=== PATIENT | female | born 1940 | race Two or more races ===

== ENCOUNTER 2017-10-21 09:01 | Outpatient (CLI) | payer OTHER | END 2017-10-21 11:40 | disposition home or self-care (01) | LOC: SONOGRAMA 09:01 | DX: E04.2 Nontoxic multinodular goiter (principal) ==

== ENCOUNTER 2017-12-29 08:35 | Emergency (ER) | payer OTHER ==
[~2017-12-29] VITALS: Ht 144.8 cm; Wt 53.1 kg
== END 2017-12-29 09:58 | disposition home or self-care (01) ==
LOC: ER 08:35
DX: S51.812A Laceration without foreign body of left forearm, initial encounter (principal); S80.212A Abrasion, left knee, initial encounter; W01.198A Fall on same level from slipping, tripping and stumbling with subsequent striking against other object, initial encounter; Y93.01 Activity, walking, marching and hiking; Y92.488 Other paved roadways as the place of occurrence of the external cause; Y99.8 Other external cause status

== ENCOUNTER 2018-01-25 16:32 | Emergency (ER) | payer OTHER ==
[~2018-01-25] VITALS: Ht 144.8 cm; Wt 52.6 kg
[2018-01-25] MEDS ORDERED: HYZAAR 100-251 EACH (16:53)
[2018-01-25] MEDS ORDERED: NORVASC5 MG (16:54)
[2018-01-25] MEDS ORDERED: PLAVIX75 MG (16:54)
== END 2018-01-25 20:42 | disposition home or self-care (01) ==
LOC: ER 16:32
DX: M54.5 Low back pain (principal)

== ENCOUNTER → 2018-04-03 | Outpatient (CLI) | payer OTHER ==
[~2018-04-03] MED LIST: HYZAAR 100-251 EACH; NORVASC5 MG; PLAVIX75 MG
== END | disposition home or self-care (01) ==
LOC: RAD 501 09:25
DX: J45.998 Other asthma (principal)

== ENCOUNTER 2018-06-25 10:44 | Outpatient (CLI) | payer OTHER | END 2018-06-25 10:48 | disposition home or self-care (01) | LOC: RAD 501 10:44 | DX: M15.0 Primary generalized (osteo)arthritis (principal); M51.27 Other intervertebral disc displacement, lumbosacral region ==

== ENCOUNTER 2019-04-17 09:31 | Emergency (ER) | payer OTHER ==
[~2019-04-17] VITALS: Ht 147.3 cm; Wt 52.6 kg
[2019-04-17] MEDS ORDERED: ATACAND32 MG (09:41)
[2019-04-17] MEDS ORDERED: GRALISE600 MG (09:42)
== END 2019-04-17 18:40 | disposition home or self-care (01) ==
LOC: ER 09:31
DX: K52.9 Noninfective gastroenteritis and colitis, unspecified (principal); E86.0 Dehydration

== ENCOUNTER 2019-04-20 08:35 | Emergency (ER) | payer OTHER ==
[~2019-04-20] VITALS: Ht 147.3 cm; Wt 52.6 kg
[~2019-04-20 08:35] MED LIST changes: +ATACAND32 MG; +GRALISE600 MG
== END 2019-04-20 14:44 | disposition home or self-care (01) ==
LOC: ER 08:35
DX: K52.9 Noninfective gastroenteritis and colitis, unspecified (principal)

== ENCOUNTER 2019-11-21 23:06 | Inpatient (IN) | payer OTHER ==
[~2019-11-21] VITALS: Ht 144.8 cm; Wt 45.4 kg
--- NOTE | 2019-11-22 01:09 | NUR ---
SE RECIBE PTE ALERTA Y ORIENTADA X 3 ESFERAS EN AREA DE AISLAMIENTO. PTE INDICA QUE PRESENTA FIEBRE Y ESCALOFRIOS DE UN ROLF DE EVOLUCION. EVALUA PTE. SE ORIENTA A PTE SOBRE TX MEDICO. PTE REFIERE COMPRENDER. SE COLECTAN MUESTRAS DE LABORATORIO BAJO MEDIDAS ASEPTICAS. SE ADMINISTRA MEDICAMENTO JEFFRY ORDEN MEDICA. SE NOTIFICA HOSSEIN X. SE REALIZA EKG Y SE PRESENTA A .
--- NOTE | 2019-11-22 07:13 | NUR ---
SE RECIBE PTE FEMENINA ALERTA Y ORIENTADA EN [place] ESFERAS ES COMPANIA DE FAMILIAR, EN CAMA BAJA CON BARANDAS ELEVADAS Y FRENOS COLOCADOS POR SEGURIDAD. SE OBSERVA CON BUEN PATRON RESPIRATORIO Y NO REFIERE DOLOR AL MOMENTO. VENOPUNCION PATENTE, LAURA DE EDEMA Y ERITEMA RECIBIENDO TERAPPIA DE IVFS 0.9NSS BAJANDO A 150ML/HR. PENDIENTE REEMPLAZO DE POTASIO EN ESPERA DE DESPACHO.
--- NOTE | 2019-11-22 09:01 | NUR ---
ORIENTA PTE SOBRE ORDENES DE LABORATORIO, REFIERE COMPRENDER. PROCEDE A COLECTAR MUESTRAS DE LABORATORIO, BAJO MEDIDAS ASEPTICAS. SE ROTULAN Y ENVIAN A LABORATORIO.
--- NOTE | 2019-11-22 15:58 | NUR ---
SE RECIBE DE TURNO ANTERIOR EN MAGDIEL #09,FEMINA DE 78 ANOS,ALERTA,ORIENTADA.AL MOMENTO JOSE ANTONIO. DESCANSANDO EN CAMA NIVEL MAS BAJO CON BARANDAS ELEVADAS,FRENOS,PRECIADO DE IDENTIFICACION COLOCADOS POR SEGURIDAD. SE OBSERVA CON BUEN PATRON RESPIRATORIO. CANULA NASAL A 2LTS/MIN. VENOPUNCION PATENTE,LIMPIA,SECA,LAURA DE S/S EDEMA Y/O ERITEMA. RECIBIENDO 0.9%NSS 1,000 ML @ 150ML/HR. PENDIENTE CONSULTA CON POR UTI,HYPOKALEMIA,LEUKOCYTOSIS.
[2019-11-23] MEDS ORDERED: ST. JOSEPH ASPI81 M2 (10:41)
[2019-11-23] MEDS ORDERED: PHENAZOPYRIDIN100 MG (10:42)
[2019-11-23] MEDS ORDERED: ROSUVASTATIN CA10 MG (10:42)
[2019-11-23] MEDS ORDERED: CILOSTAZOL50 MG (10:44)
== END 2019-11-30 18:16 | disposition home or self-care (01) | DRG 872 ==
LOC: ER 23:06 → MEDI 11-22 18:31 → SEC-K 11-22 18:31 → MEDI 11-23 00:46
PROVIDERS: ADMIT Internal Medicine; ATTEND Internal Medicine
PROC: BW21ZZZ Computerized Tomography (CT Scan) of Abdomen and Pelvis (ICD-10-PCS; principal; 2019-11-23)
PROC: 4A033R1 Measurement of Arterial Saturation, Peripheral, Percutaneous Approach (ICD-10-PCS; 2019-11-23)
DX: A41.51 Sepsis due to Escherichia coli [E. coli] (principal); N39.0 Urinary tract infection, site not specified; N32.1 Vesicointestinal fistula; I87.2 Venous insufficiency (chronic) (peripheral); I10 Essential (primary) hypertension; E87.6 Hypokalemia; R39.89 Other symptoms and signs involving the genitourinary system; E11.9 Type 2 diabetes mellitus without complications; E03.9 Hypothyroidism, unspecified; Z20.828 Contact with and (suspected) exposure to other viral communicable diseases; Z53.29 Procedure and treatment not carried out because of patient's decision for other reasons

== ENCOUNTER 2019-12-22 07:22 | Inpatient (IN) | payer OTHER ==
[~2019-12-22] VITALS: Ht 144.8 cm; Wt 45.4 kg
[~2019-12-22 07:22] MED LIST changes: +CILOSTAZOL50 MG; +PHENAZOPYRIDIN100 MG; +ROSUVASTATIN CA10 MG; +ST. JOSEPH ASPI81 M2
--- NOTE | 2019-12-22 07:41 | NUR ---
SE RECIBE FEMIAN DE 78 ANOS DE EDAD, ALERTA Y ORIENTADA POR KURT DIMESNIONES, CON BUEN PATRON RESPIRATORIO. VIENE JOSE ANTONIO EN AMBULANCIA POR STRECHER, REFIERE QUE CASTREJON FAMILIAR VIENE DE VA. REFIERE QUE SE CALLO EN EL JOE DE CASTREJON CASA ESTA MANANA Y QUE TIENE DOLOR EN ESPALDA BAJA. SE OBSERVA HEMATOMA DEBAJO DEL LETY DERECHO. SE MARLEE S/V Y SE UBICA EN AREA DE OBSERVACION.
--- NOTE | 2019-12-22 09:19 | NUR ---
PACIENTE ALERTA Y ORIENTADA EN [place] ESFERAS, MR. SALAZAR ORIENTA A PACIENTE SOBRE PROCEDIMIENTO Y TX, REFIERE ENTENDER. EXTRAE MUESTRAS DE LABORATORIO CON MEDIDAS ASEPTICAS Y ADMINISTRA MEDICAMENTOS JEFFRY ORDEN MEDICA.
--- NOTE | 2019-12-22 16:00 | NUR ---
PTE ALERTA Y ORIENTADA X 3 ESFERAS,EN MAGDIEL CON BARANDAS ELEVADAS,EN COMPANIA DE FAMILIAR,REFIERE DOLOR MARIE DESEA SOLO TYLENOL,SE NOTIFICA A DRA DIAS,AREA DE VENOPUNCION PATENTE Y LAURA DE EDEMA CON FLUIDOS DE MANTENIMIENTO BAJANDO SIN DIFICULTAD.SE MARLEE TUBOS PILOTOS PARA 2 UNIDADES DE PRBC EN HOLD Y SE LLEVA A BANCO DE BINDU APCH.PENDIENTE A EVALUACION DE DR JARQUIN.
== END 2020-01-05 15:53 | DRG 481 ==
LOC: ER 07:22 → SEC-K 19:20 → MEDI 19:20 → MEDJ 12-23 12:06 → SEC-K 12-23 12:15 → MEDI 12-23 12:46
PROVIDERS: Orthopaedic Surgery; ADMIT Internal Medicine; ATTEND Internal Medicine
PROC: BW28ZZZ Computerized Tomography (CT Scan) of Head (ICD-10-PCS; 2019-12-22)
PROC: BW3GZZZ Magnetic Resonance Imaging (MRI) of Pelvic Region (ICD-10-PCS; 2019-12-22)
PROC: 30233N1 Transfusion of Nonautologous Red Blood Cells into Peripheral Vein, Percutaneous Approach (ICD-10-PCS; 2019-12-23)
PROC: BW21ZZZ Computerized Tomography (CT Scan) of Abdomen and Pelvis (ICD-10-PCS; 2019-12-29)
PROC: B246ZZZ Ultrasonography of Right and Left Heart (ICD-10-PCS; 2019-12-29)
PROC: 0QU73JZ Supplement Left Upper Femur with Synthetic Substitute, Percutaneous Approach (ICD-10-PCS; 2020-01-01)
PROC: 0QH736Z Insertion of Intramedullary Internal Fixation Device into Left Upper Femur, Percutaneous Approach (ICD-10-PCS; principal; 2020-01-01 10:15)
DX: S72.142A Displaced intertrochanteric fracture of left femur, initial encounter for closed fracture (principal); N32.1 Vesicointestinal fistula; M80.00XA Age-related osteoporosis with current pathological fracture, unspecified site, initial encounter for fracture; R78.81 Bacteremia; N39.0 Urinary tract infection, site not specified; R42 Dizziness and giddiness; I10 Essential (primary) hypertension; I73.89 Other specified peripheral vascular diseases; K57.30 Diverticulosis of large intestine without perforation or abscess without bleeding; B95.2 Enterococcus as the cause of diseases classified elsewhere; B96.29 Other Escherichia coli [E. coli] as the cause of diseases classified elsewhere; D64.9 Anemia, unspecified; Z79.01 Long term (current) use of anticoagulants
CPT/HCPCS: 73721

== ENCOUNTER 2020-03-29 05:45 | Day surgery (SDC) | payer OTHER | END 2020-03-29 11:05 | disposition home or self-care (01) | LOC: AMB-ENDOS 05:45 | PROVIDERS: ATTEND Surgery | DX: K62.89 Other specified diseases of anus and rectum (principal); Z20.828 Contact with and (suspected) exposure to other viral communicable diseases; Z12.11 Encounter for screening for malignant neoplasm of colon ==

== ENCOUNTER 2021-04-30 12:25 | Emergency (ER) | payer OTHER ==
[~2021-04-30] VITALS: Ht 144.8 cm; Wt 45.4 kg
== END 2021-04-30 17:13 | disposition home or self-care (01) ==
LOC: ER 12:25
DX: E86.0 Dehydration (principal); R19.7 Diarrhea, unspecified; Z20.822 Contact with and (suspected) exposure to COVID-19; Z88.2 Allergy status to sulfonamides; Z88.0 Allergy status to penicillin; Z91.013 Allergy to seafood; I10 Essential (primary) hypertension

== ENCOUNTER 2022-04-01 19:41 | Emergency (ER) | payer OTHER ==
[~2022-04-01] VITALS: Ht 162.6 cm; Wt 49.9 kg
== END 2022-04-02 05:36 | disposition home or self-care (01) ==
LOC: ER 19:41
DX: K29.70 Gastritis, unspecified, without bleeding (principal); Z88.0 Allergy status to penicillin; Z88.6 Allergy status to analgesic agent; E11.9 Type 2 diabetes mellitus without complications; I10 Essential (primary) hypertension; Z88.2 Allergy status to sulfonamides; Z91.013 Allergy to seafood; K57.30 Diverticulosis of large intestine without perforation or abscess without bleeding; Z20.822 Contact with and (suspected) exposure to COVID-19